=== PATIENT | male | born 1960 | race Caucasian/White ===

== ENCOUNTER 2022-05-19 21:35 | Emergency (ER) | payer OTHER, SELFPAY ==
[2022-05-19] MEDS ORDERED: Nitroglycerin 0.4 MG TAB 1 EACH ONE ×2 (22:27→22:33)
[2022-05-19] MEDS ORDERED: Aspirin Chewable 81 MG TAB ONE (22:27)
[2022-05-19 22:35] LABS: Hemoglobin 16.4 g/dL (14.0-18.0); Mean Corpuscular HGB CONC 33.4 g/dL (32.0-36.0); Mean Corpuscular Volume 92.9 fl (78.0-98.0); Mean Platelet Volume 8.5 fL (7.4-10.4); Platelet Count 220 10x3/uL (130-400); RBC Distribution Width 11.5 % (11.5-14.5); Red Blood Cell (RBC) Count 5.28 mill/uL (4.70-6.10); White Blood Cell (WBC) Count 7.3 10x3/uL (4.8-10.8)
[2022-05-19 22:51] LABS: Band 2 % (5-11); Eosinophils 4 % (0-10); Lymphocytes 24 % (21-51); MDiff Complete? YES; Monocytes 11 % (0-10); Neutrophil 58 % (42-75); Platelet Morphology Comment Appears Adequate; RBC Morphology Normal; Reactive Lymphocytes 1 % (0-10)
[2022-05-19 22:56] LABS: ALT (SGPT) 28 U/L (8-55); AST (SGOT) 18 U/L (5-34); Albumin 4.2 g/dL (3.4-4.8); Alkaline Phosphatase 77 U/L (40-110); Anion Gap 10 mmol/L (10-20); BUN (Urea Nitrogen) 14 mg/dL (8.4-25.7); Bilirubin, Total 0.6 mg/dL (0.2-1.2); Calc. Creatinine Clearance 0 mL/min (70-130); Calcium 9.3 mg/dL (7.8-10.44); Carbon Dioxide 26 mmol/L (23-31); Chloride 105 mmol/L (98-107); Estimated GFR 78; Globulin 2.5 g/dL (2.4-3.5); Glucose 118 mg/dL (80-115); Lipase 20 U/L (8-78); Potassium 3.9 mmol/L (3.5-5.1); Protein, Total 6.7 g/dL (5.8-8.1); Sodium 137 mmol/L (136-145)
[2022-05-19] MEDS ORDERED: Lidocaine Viscous Sol 2% 15 ml UD Cup ONE (23:05)
[2022-05-19] MEDS ORDERED: Mag-Al 1200 mg/1200 mg/30 ML UDCUP ONE (23:05)
[2022-05-19] MEDS ORDERED: Pantoprazole 40 MG VIAL ONE (23:06)
== END 2022-05-20 01:10 | disposition home or self-care (01) ==
LOC: ERS 21:35
DX: R07.89 Other chest pain (principal); I10 Essential (primary) hypertension; E78.5 Hyperlipidemia, unspecified; Z79.899 Other long term (current) drug therapy
CPT/HCPCS: 71045; 80053; 83690; 84484; 85025; 93005; C9113